=== PATIENT | male | born 1945 | race Hispanic/Latino ===

== ENCOUNTER 2022-09-09 16:06 | Emergency (ER) | payer MEDICARE, OTHER ==
[~2022-09-09] VITALS: Ht 172.7 cm; Wt 113.4 kg
[2022-09-10 04:30] VITALS: BP 137/80
== END 2022-09-10 04:30 | disposition short-term general hospital (02) ==
LOC: ED 16:06
DX: M54.50 Low back pain, unspecified (principal); D72.829 Elevated white blood cell count, unspecified; Z20.822 Contact with and (suspected) exposure to COVID-19
CPT/HCPCS: 36415; 51701; 51798; 71045; 74177; 80053; 81001; 83605; 85025; 85610; 85651; 85730; 86140; 87502; 99285-25; C9803; J0696; J7030; Q9967; U0003